=== PATIENT | female | born 1935 | race Caucasian/White ===

== ENCOUNTER 2016-09-25 10:02 | Day surgery (SDC) | payer OTHER ==
[~2016-09-25] VITALS: Ht 149.9 cm; Wt 65.4 kg
[2016-09-25] VITALS (9 sets, daily range): BP systolic 118–163; BP diastolic 61–77; PULSE 68–78; RESP 11–18; Ht 149.9 cm; Wt 65.4 kg
[~2016-09-25 10:02] MED LIST: ALEN70TA30 PO; CALC650T12 PO; CHOL100062 PO; FEXO-62 PO; MELO-174 PO; METAMUCIL1 PK1 PO; SMV40T PO
[2016-09-25] MEDS ORDERED: VITA150T PO (11:05)
[2016-09-25] MEDS ORDERED: NEOMYC/POLYMYX/HC 10 ML OTIC SUSP ONE (11:13)
[2016-09-25] MEDS ORDERED: GELATIN SIZE 100 SPONGE ONE (11:15)
[2016-09-25] MEDS ORDERED: EPINEPHrine 1 MG/ML 30 ML INJ ONE (11:15)
[2016-09-25] MEDS ORDERED: LIDOCAINE 1%/EPI 30 ML INJ ONE (11:16)
--- NOTE | 2016-09-25 11:18 | HPN ---
Date/Time of Note Date/Time of Note DATE: 09/25/16 TIME: 11:18 Interval H&P Admission Note Pt. seen H&P reviewed: No system changes FELICIANO ZAVALA M.D. Sep 25, 2016 11:18
[2016-09-25] MEDS ORDERED: PROPOFOL 20 ML ONE (11:28)
[2016-09-25] MEDS ORDERED: FENTAnyl 50 MCG/ML VIAL ONE ×2 (11:30→11:32)
[2016-09-25] MEDS ORDERED: LIDOCAINE 1%/EPI 30 ML INJ INJ ONE (11:49)
[2016-09-25] MEDS ORDERED: GELATIN SIZE 100 SPONGE TOP ONE (12:09)
[2016-09-25] MEDS ORDERED: DEXAMETHASONE 4 MG/ML 1 ML INJ ONE (12:31)
[2016-09-25] MEDS ORDERED: CEFAZOLIN 1 GM INJ ONE (12:31)
[2016-09-25] MEDS ORDERED: METOCLOPRAMIDE 10 MG INJ ONE (12:31)
[2016-09-25] MEDS ORDERED: ONDANSETRON 4 MG INJ ONE (12:31)
[2016-09-25] MEDS ORDERED: ONDANSETRON 4 MG INJ IV PRN (13:00)
[2016-09-25] MEDS ORDERED: morphine (1 MG/ML) 10ML SYRINGE IV PRN ×2 (13:00)
[2016-09-25] MEDS ORDERED: DIPHENHYDRAMINE 50 MG INJ IV PRN (13:00)
[2016-09-25] MEDS ORDERED: FENTAnyl 50 MCG/ML VIAL IV PRN ×2 (13:00)
--- NOTE | 2016-09-25 13:10 | PDOCDIS ---
Discharge Instructions DIAGNOSIS Discharge Diagnosis: LEFT EAR CHRONIC OTITIS MEDIA. CONDITION Patient Condition: Good HOME CARE INSTRUCTIONS: Diet Instructions: Regular ACTIVITY: Activity Restrictions: Slowly Increase Activity Rest between Activity Avoid heavy lifting Avoid Heavy Housework Bathing Restrictions: Tub Bath FOLLOW UP/APPOINTMENTS Appointments MY [facility]ICE ON SEPTEMBER 28, 2016 AT 3:30 PM. FELICIANO ZAVALA M.D. Sep 25, 2016 13:10
--- NOTE | 2016-09-25 15:14 | OPR ---
DATE OF OPERATION: 09/25/2016 SURGEON: Tomer Shah MD PREOPERATIVE DIAGNOSES: 1. Left ear chronic otitis media with central perforation. 2. 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 POSTOPERATIVE DIAGNOSES: 1. Left ear chronic otitis media with central perforation. 2. 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 OPERATION PERFORMED: Left ear tympanoplasty procedure using a lateral tragal perichondrial graft. ESTIMATED BLOOD LOSS: Less than 1 mL. COMPLICATIONS: None. SPECIMENS: No specimens sent to the lab. ANESTHETIC USED: General anesthesia with LMA tube placement and 1 mL of 1% lidocaine with epinephri ne 1:100,000 using a 25-gauge needle. The patient also had topical adrenaline applied using l ess than 1 mL. FINDINGS DURING PROCEDURE: Left ear posterior central tympanic membrane perforation without any edouard dence of cholesteatoma or tumor presents. The ossicles appeared to be intact. INDICATIONS: Ms. Sherron Fung is an 81-year-old female who has a history of hearing loss in th e left ear. The patient has been found to have a chronic ear infection and has been treated with an tibiotics and antibiotic eardrops with resolution of her infection. The patient is now being consid ered for surgical procedure on the left ear to help protect the ear from damage and also to help imp rove her hearing. Risks, benefits, and alternatives have been explained thoroughly to Mrs. Fung . They include infection, bleeding, scar formation, tragal deformity with possible tragal hematoma. She also understands the risks of failure of the graft and worsening of her hearing loss. She als o understands the risk of facial nerve damage or weakness that can be caused during the procedure. Patient also understands the risk of reaction to general and local anesthetic agents that will be us ed during the procedure. She has signed a consent once her questions were answered. The patient le ft the operating room in good and satisfactory condition for the recovery room. DESCRIPTION OF PROCEDURE: The patient was taken to the operating room, placed on the surgical table in supine position and made comfortable by the anesthesiologist. The patient had EKG, saturation m onitoring and blood pressure cuff applied. At this point, the patient was given a mask with inhalat ion agent and placed asleep gently. The patient had a previously started IV in the preinduction are a which was infusing well. The patient was placed under deep sedation before being successfully ora lly introduced with a LMA tube placement properly placed and sealed. Her airway was then maintaine d and controlled as she was placed under general anesthesia. The head was then turned slightly to t he right to gain better access to the left ear. At this point, the left ear was noted to have a mar k indicating the appropriate ear for the surgery and a yes indicating the ear for dissection. The e ar was then prepped with a Betadine scrub and paint reagent to create a sterile field around the lef t ear. The patient was then draped off in the usual sterile fashion using towels and a split sheet. A second time out was then encountered and all again were in agreement. The ear was then brought under microscopic focus using Zeiss microscope, which was draped off in the usual sterile fashion. The tympanic membrane was noted to have a 40% perforation of the pars tensa in the posterior region. The ossicles appeared to be intact as viewed through the tympanic membrane. There was no gross in fection and in the attic area there was no cholesteatoma formation. The speculum was then removed a s the tragus was injected with a 25-gauge 1-/2 needle using 1% lidocaine with epinephrine 1:100,000 . At this point, a #15 [employer] sharp stainless steel blade was used to make a vertical incision along the edge of the left tragus. Tenotomy scissors were then used to harvest the tragal cartilag e, which was sharply dissected and removed with tenotomy scissors. At this point, the harvest carti lorrie and fascial graft was then evaluated and the perichondrial layer was stripped away from the und erlying cartilage. The remaining cartilage was then placed back into the donor site where a 5-0 nyl on suture was used to close the donor site in simple interrupted fashion. The perichondrial graft r emoved was trimmed of the muscularis subcuticular tissue attachment and placed on Gelfoam. A press was then used to press the graft and the Gelfoam and it was left underneath a heat lamp. The proced ure then switched back to the external auditory canal which was viewed through a speculum. Using mi croscopic evaluation the tympanic membrane lateral surface was removed using a #3 microsuction. The tympanic membrane perforation in the posterior region was denuded of its inner lining in preparatio n for grafting. After removal of the lateral surface of the tympanic membrane bleeding was controll ed using a cotton soaked in adrenaline. This stopped the bleeding after the cotton was removed. Th e harvest graft was then removed from the Gelfoam and allowed to dry separately underneath the heat lamp. After the graft was dried it was then placed back inside the external auditory canal and on t he lateral surface of the tympanic membrane. The graft covered the tympanic membrane in its entiret y as the remnant edges of the lateral tympanic membrane were placed on top of the graft to secure it . Gelfoam was then used to pack the external auditory canal using dry Gelfoam. The rest of the ext ernal auditory canal was packed with Gelfoam soaked in Cortisporin otic suspension. A cotton ball w as then placed inside the external auditory canal to hold the Gelfoam in place. A larger ball of co tton was then placed in the flora region to keep the cotton ball and Gelfoam in place. An eye patc h was then placed over the left ear taped in place. This ended the procedure. Sponge count and in strument count were accurate x3. There were no complications during the procedure. The LMA was the n removed after which the patient was taken to the recovery room in good and satisfactory condition. The patient expected to be discharged home unless postoperative complications develop. Dictated By: TOMER MCDONALD/LUIS Conf#: [id number] DID#: [id number]
== END 2016-09-25 14:50 | disposition home or self-care (01) ==
LOC: SDS 10:02
PROVIDERS: ATTEND Otolaryngology Otolaryngology/Facial Plastic Surgery
DX: H66.92 Otitis media, unspecified, left ear (principal)
CPT/HCPCS: 69436; J0171; J0690; J1100; J2405; J2765; J3010

== ENCOUNTER 2018-03-12 09:30 | Day surgery (SDC) | END 2018-03-12 11:17 | disposition home or self-care (01) ==